=== PATIENT | male | born 2000 | race Caucasian/White ===

== ENCOUNTER 2020-07-10 22:28 | Emergency (ER) | payer OTHER, SELFPAY ==
--- NOTE | 2020-07-10 22:54 | RAD ---
RADIOGRAPH RIGHT HAND [id number]: DATE: 07/10/2020 HISTORY: 19-year-old male status post acute thermal injury to right hand FINDINGS: There is no evidence of fracture or dislocation. There is no evidence of periostitis, permeative lesi on, osteolytic lesion, or osteoblastic lesion. The joint spaces are maintained without erosions or significant osteophytes. IMPRESSION: Normal
[2020-07-10] MEDS ORDERED: Boostrix 0.5 ML (Tdap) VIAL ONE (22:59)
[2020-07-10] MEDS ORDERED: Bacitracin 1 PK ONE (23:12)
== END 2020-07-10 23:27 | disposition home or self-care (01) ==
LOC: ERS 22:28
DX: T23.202A Burn of second degree of left hand, unspecified site, initial encounter (principal); T22.212A Burn of second degree of left forearm, initial encounter; T31.22 Burns involving 20-29% of body surface with 20-29% third degree burns; S60.221A Contusion of right hand, initial encounter; Z23 Encounter for immunization; X04.XXXA Exposure to ignition of highly flammable material, initial encounter
CPT/HCPCS: 16020; 90471; 90715

== ENCOUNTER 2024-08-24 04:13 | Emergency (ER) | payer BC ==
[2024-08-24] MEDS ORDERED: Famotidine/PF 20 mg/2ml Vial ONE (04:42)
[2024-08-24] MEDS ORDERED: Dexamethasone 10 MG/ML VIAL ONE (04:42)
[2024-08-24] MEDS ORDERED: Ondansetron PF 4 MG/2 ML Vial ONE (04:44)
== END 2024-08-24 06:32 | disposition home or self-care (01) ==
LOC: ERS 04:13
DX: L50.0 Allergic urticaria (principal); F17.290 Nicotine dependence, other tobacco product, uncomplicated; Z55.6 Problems related to health literacy; Z75.3 Unavailability and inaccessibility of health-care facilities
CPT/HCPCS: 96374; 96375; J1100; J2405; J3490